=== PATIENT | male | born 1965 | race Hispanic/Latino ===

== ENCOUNTER 2018-01-18 09:12 | Outpatient (CLI) | payer BC | END 2018-01-18 09:13 | disposition home or self-care (01) | LOC: CTENTCT 09:12 | PROVIDERS: ATTEND Otolaryngology Plastic Surgery within the Head & Neck | DX: J32.9 Chronic sinusitis, unspecified (principal) | CPT/HCPCS: 70486 ==

== ENCOUNTER 2018-02-17 06:22 | Day surgery (SDC) | payer BC ==
[2018-02-02 12:59] VITALS: BMI 40.7
[2018-02-17] MEDS ORDERED: Oxymetazoline HCl 0.05% ( 15 ML ) ONE ×2 (07:46→08:20)
[2018-02-17] MEDS ORDERED: Lidocaine 0.5%/Epinephrine 1:200,000 50 ml Vial ONE (08:20)
[2018-02-17] MEDS ORDERED: Bacitracin Zinc Ointment 30 gm TUBE ONE (08:20)
[2018-02-17] MEDS ORDERED: Lidocaine 1% w/Epinephrine 1:100K 30 ML VIAL ONE (08:21)
[2018-02-17] MEDS ORDERED: Fentanyl 100 MCG/2 ML VIAL ONE (08:23)
[2018-02-17] MEDS ORDERED: Famotidine/PF 20 mg/2ml Vial ONE (08:23)
[2018-02-17] MEDS ORDERED: Lidocaine 1% PF 5 ML VIAL ONE (11:24)
[2018-02-17] MEDS ORDERED: PROPOFOL 200 MG/20 ML VIAL ONE (11:24)
[2018-02-17] MEDS ORDERED: Succinylcholine Chloride 20 MG/ML 10 ml SYRINGE FS ONE (11:24)
[2018-02-17] MEDS ORDERED: Ondansetron PF 4 MG/2 ML Vial ONE (11:24)
[2018-02-17] MEDS ORDERED: Ketorolac Tromethamine 30 MG/ML VIAL ONE (11:24)
[2018-02-17] MEDS ORDERED: Dexamethasone 20 MG/5 ML VIAL ONE (11:24)
--- NOTE | 2018-02-17 15:49 | EKG ---
Test Reason : PREOP Blood Pressure : / mmHG Vent. Rate : 068 BPM Atrial Rate : 068 BPM P-R Int : 166 ms QRS Dur : 114 ms QT Int : 422 ms P-R-T Axes : 041 060 021 degrees QTc Int : 448 ms Normal sinus rhythm Incomplete right bundle branch block Abnormal ECG Confirmed by RIKI FORTUNE ([id number]) on 02/17/2018 3:49:15 PM Referred By: MOR Confirmed By:RIKI FORTUNE
--- NOTE | 2018-02-19 08:19 | OP ---
DATE OF PROCEDURE: 02/17/2018 PREOPERATIVE DIAGNOSES: 1. Allergic fungal sinusitis. 2. Chronic rhinosinusitis. 3. Nasal septal deviation. 4. Bilateral inferior turbinate hypertrophy. 5. Nasal obstruction. POSTOPERATIVE DIAGNOSES: 1. Allergic fungal sinusitis. 2. Chronic rhinosinusitis. 3. Nasal septal deviation. 4. Bilateral inferior turbinate hypertrophy. 5. Nasal obstruction. PROCEDURES: 1. Bilateral endoscopic sinus surgery, total ethmoidectomies with removal of tissue. 2. Bilateral endoscopic sinus surgery, maxillary antrostomies. 3. Bilateral endoscopic sinus surgery, frontal sinusotomies. 4. Nasal septoplasty. 5. Bilateral inferior turbinate submucosal resection. SURGEON: Jamie Figueredo M.D. ESTIMATED BLOOD LOSS: 50 mL. COMPLICATIONS: None. ANESTHESIA: GETA. PROCEDURE IN DETAIL: Patient was taken to the operating room and placed supine on the table. General endotracheal anesthesia was obtained by the Anesthesia staff. Tube was secured in the left lower lip. Patient was then placed in the beach chair position, and Afrin pledgets were placed in the nasal cavity. Injections of 1% lidocaine with 1:100,000 epinephrine were made into the nasal septum as well as the inferior turbinates. Patien t was then prepped and draped in standard surgical fashion for nasal surgery. Following this, the Afrin pledgets were removed. A Ki llian incision was made on the left nasal septum. Submucoperichondrial dissection was performed. The deviated portions of the septum included portions of the cartilage and the bony septum. These isolate d areas were removed using three cutting rongeurs. There was noted to be a large dorsal and caudal stru t, left intact for support of the nose. The mucoperichondrial flaps were then reapproximated using a 4-0 gut stitch. Any straight pieces of cartilage were crushed prior to this and placed between the mucoperichondrial flaps. Following this, the inferior turbinates were then punctured with a submucosa l coblation wand, and submucosal coblations were performed of multiple areas of the inferior portion of the anterior inferior turbinate. Please note that submucosal microdebrider was used to submucosally resect the anterior and inferior p ortions of the inferior turbinates bilaterally. Following this, the 0 degree scope was advanced the middle meatus and middle turbinates were gently medialized using a [place] elevator. The uncinate proc ess was then identified anteriorly fractured using the ball-ended probe bilaterally. Following this, the uncinate process was removed using the straight microdebrider and the upbiting [place] forceps . Following this, the natural maxillary sinus ostia was identified by palpation using the ball-ended probe. Following this, the maxillary sinus ostia was gently widened using the curved microdebrider and straight [place] forceps. On the right side, a curved microdebrider and the 45 degree endoscop e was used to remove a mucocele hanging from the superior wall of right maxillary sinus. Following t his, the ethmoidal bulla was identified and was punctured on its medial and inferior aspect and was r emoved using the microdebrider and upbiting [place]ley forceps. Following this, the grand lamella was identified and was punctured into the posterior ethmoidal cells. Working from posterior to anterior , the ethmoidal cells were opened using the straight microdebrider, curved microdebrider and upbiting Blakesley forceps. Following this, the 45 degree scope was used to visualize the frontal recess and frontal sinus ostia area which was then widened using the 40-degree microdebrider bilaterally. On t he left posterior ethmoidal side, there was a hard impacted fungal debris that was debrided and elma tomás from the posterior ethmoidal cell. There was no evidence of invasive process. Following this, t he nasal cavity irrigated. MeroPacks were placed. Woody splints were placed and secured. The patie nt tolerated the procedure well.
== END 2018-02-17 11:20 | disposition home or self-care (01) ==
LOC: SDC 06:22
PROVIDERS: ATTEND Otolaryngology Plastic Surgery within the Head & Neck
PROC: 0NBF4ZZ Excision of Right Ethmoid Bone, Percutaneous Endoscopic Approach (ICD-10-PCS; principal; 2018-02-17)
PROC: 09BM8ZZ Excision of Nasal Septum, Via Natural or Artificial Opening Endoscopic (ICD-10-PCS; principal; 2018-02-17)
PROC: 0NBG4ZZ Excision of Left Ethmoid Bone, Percutaneous Endoscopic Approach (ICD-10-PCS; principal; 2018-02-17)
DX: J32.4 Chronic pansinusitis (principal); J34.2 Deviated nasal septum; J34.3 Hypertrophy of nasal turbinates; G47.33 Obstructive sleep apnea (adult) (pediatric); J30.9 Allergic rhinitis, unspecified; E11.9 Type 2 diabetes mellitus without complications; Z79.4 Long term (current) use of insulin; Z79.899 Other long term (current) drug therapy; Z87.891 Personal history of nicotine dependence
CPT/HCPCS: 93005; 93010; J0131; J1100; J1885; J2001; J2405; J2704; J3010; S0028

== ENCOUNTER 2020-04-01 01:00 | Emergency (ER) | payer BC ==
[2020-04-01] MEDS ORDERED: Sodium Bicarb 50 MEQ/50 ML Abboject 8.4% SYRINGE ONE (12:34)
[2020-04-01] MEDS ORDERED: Calcium Chloride 1 GM/10 ML Abboject SYRINGE ONE (12:34)
[2020-04-01] MEDS ORDERED: EPINEPHrine 1 MG/10 ML Abboject SYRINGE ONE (12:34)
== END 2020-04-01 01:11 | disposition expired ==
LOC: ERS 01:00
DX: I46.9 Cardiac arrest, cause unspecified (principal); E11.9 Type 2 diabetes mellitus without complications
CPT/HCPCS: 92950; 94760; 96374; 96375; J0171